=== PATIENT | female | born 1950 | race Hispanic/Latino ===

== ENCOUNTER 2017-06-26 06:11 | Day surgery (SDC) | payer OTHER ==
[~2017-06-26] VITALS: Ht 157.5 cm; Wt 83.6 kg
[2017-06-26 06:50] VITALS: BP 135/64
[2017-06-26] MEDS ORDERED: SODIUM CHLORIDE 0.9% 1000ML 1,000 ML IV ONE (06:54)
[2017-06-26] MEDS ORDERED: AMLO1TAB13 PO (07:19)
[2017-06-26] MEDS ORDERED: HYDR25TA PO (07:19)
[2017-06-26] MEDS ORDERED: BENZ200C53 PO (07:19)
[2017-06-26] MEDS ORDERED: FLUTICASONE NASAL (07:19)
[2017-06-26] MEDS ORDERED: ERGO500014 PO (07:19)
[2017-06-26] MEDS ORDERED: CYAN500L PO (07:19)
[2017-06-26] MEDS ORDERED: LEVO75TA10 PO (07:19)
[2017-06-26] MEDS ORDERED: NITR0.4T50 SL (07:19)
[2017-06-26] MEDS ORDERED: SPIR25TA4 PO (07:19)
[2017-06-26] MEDS ORDERED: PROPOFOL 10 MG/ML 20ML VIAL IV ONE (07:51)
[2017-06-26 08:04] VITALS: BP 99/48
[2017-08-31] MEDS ORDERED: PANT40TA25 PO (08:54)
== END 2017-06-26 08:35 ==
LOC: DAH 06:11
PROVIDERS: ATTEND Internal Medicine Gastroenterology
DX: K21.0 Gastro-esophageal reflux disease with esophagitis (principal); Z88.8 Allergy status to other drugs, medicaments and biological substances; Z79.899 Other long term (current) drug therapy; I10 Essential (primary) hypertension; I48.91 Unspecified atrial fibrillation; J45.909 Unspecified asthma, uncomplicated; M19.90 Unspecified osteoarthritis, unspecified site; Z90.710 Acquired absence of both cervix and uterus; Z98.890 Other specified postprocedural states; Z68.34 Body mass index [BMI] 34.0-34.9, adult
CPT/HCPCS: 43235; 93005; A4606; J2704; J7030

== ENCOUNTER 2017-09-01 07:42 | Day surgery (SDC) | payer OTHER ==
[~2017-09-01] VITALS: Ht 160 cm; Wt 82.2 kg
[~2017-09-01 07:42] MED LIST: AMLO1TAB13 PO; CYAN500L PO; ERGO500014 PO; FLUTICASONE NASAL; LEVO75TA10 PO; NITR0.4T50 SL; PANT40TA25 PO; SODIUM CHLORIDE 0.9% 1000ML 1,000 ML IV ONE; SPIR25TA6 PO
[2017-09-01 07:46] VITALS: BP 133/57
[2017-09-01] MEDS ORDERED: PROPOFOL 10 MG/ML 20ML VIAL IV ONE (09:38)
[2017-09-01] MEDS ORDERED: FENTANYL CITRATE PF 50 MCG/1 ML 2ML VIAL ONE (09:39)
[2017-09-01 09:56] VITALS: BP 112/58
== END 2017-09-01 10:40 ==
LOC: ENDO 07:42 → DAH 07:42 → ENDO 10:40
PROVIDERS: ATTEND Internal Medicine Gastroenterology
DX: Z12.11 Encounter for screening for malignant neoplasm of colon (principal); D12.4 Benign neoplasm of descending colon; K57.30 Diverticulosis of large intestine without perforation or abscess without bleeding; I10 Essential (primary) hypertension; K21.0 Gastro-esophageal reflux disease with esophagitis; I48.91 Unspecified atrial fibrillation; J45.909 Unspecified asthma, uncomplicated; M19.90 Unspecified osteoarthritis, unspecified site; Z87.442 Personal history of urinary calculi; Z88.6 Allergy status to analgesic agent; Z79.899 Other long term (current) drug therapy
CPT/HCPCS: 45380; 82948 ×2; 88305; A4606; J2704; J3010; J7030

== ENCOUNTER → 2017-10-16 | Outpatient (CLI) | payer OTHER ==
[~2017-10-16] MED LIST changes: -SODIUM CHLORIDE 0.9% 1000ML 1,000 ML IV ONE
== END | disposition home or self-care (01) ==
LOC: OIH 14:42
PROVIDERS: ATTEND Internal Medicine Cardiovascular Disease
DX: Z13.6 Encounter for screening for cardiovascular disorders (principal)
CPT/HCPCS: 75571

== ENCOUNTER → 2018-03-30 | Outpatient (CLI) | payer OTHER | END | disposition home or self-care (01) | LOC: RAH 11:14 | PROVIDERS: ATTEND Internal Medicine | DX: R10.84 Generalized abdominal pain (principal); R11.10 Vomiting, unspecified; R14.0 Abdominal distension (gaseous); K21.9 Gastro-esophageal reflux disease without esophagitis | CPT/HCPCS: 78264; A9541 ==

== ENCOUNTER → 2021-08-21 | Outpatient (CLI) | payer MEDICARE ==
[~2021-08-21] MED LIST changes: +AMLO-258 PO; -AMLO1TAB13 PO; +ASPI-1197 PO; +BENZ-39 PO; +BUDE0.5A8 IH; +HYDR25TA PO; +LEVO500T90 PO; +LEVO88TA7 PO; +LOSA50TA64 PO; -PANT40TA25 PO; +PRED20TA3 PO; +RANI150T7 PO
== END | disposition home or self-care (01) ==
LOC: RAH 16:36
PROVIDERS: ATTEND Physician Assistant
DX: M54.50 Low back pain, unspecified (principal); M41.25 Other idiopathic scoliosis, thoracolumbar region
CPT/HCPCS: 72081; 72114

== ENCOUNTER → 2023-06-19 | Outpatient (CLI) | payer MEDICARE ==
[~2023-06-19] MED LIST changes: +ASCO500C18 PO; -BENZ-39 PO; +ESOM40CA54 PO; +FURO20TA4 PO; -HYDR25TA PO; -LEVO500T90 PO; +MULT-1258 PO; -NITR0.4T50 SL; -PRED20TA3 PO
== END | disposition home or self-care (01) ==
LOC: RAH 12:43
PROVIDERS: ATTEND Physical Medicine & Rehabilitation
DX: M48.07 Spinal stenosis, lumbosacral region (principal); M54.51 Vertebrogenic low back pain; M99.05 Segmental and somatic dysfunction of pelvic region; M47.816 Spondylosis without myelopathy or radiculopathy, lumbar region
CPT/HCPCS: 72131

== ENCOUNTER → 2024-02-15 | Outpatient (CLI) | payer MEDICARE ==
[~2024-02-15] MED LIST changes: -ESOM40CA54 PO; +ESOM40CA66 PO
== END | disposition home or self-care (01) ==
LOC: RAH 14:09
PROVIDERS: ATTEND Physician Assistant
DX: R26.89 Other abnormalities of gait and mobility (principal)
CPT/HCPCS: 70551

== ENCOUNTER → 2025-04-04 | Outpatient (CLI) | payer MEDICARE ==
--- NOTE | 2025-04-04 13:49 | HMCIMG ---
EXAM: XR Right shoulder joint, 2 views: internal rotation and external rotation. CLINICAL HISTORY: PAIN IN THE RIGHT SHOULDER. COMPARISON: None provided. FINDINGS: BONES: Diffuse osteopenia noted. No acute fracture or focal osseous lesion. JOINTS: Mild degenerative changes at the acromioclavicular joint. No dislocation. The joint spaces are normal. SOFT TISSUES: The soft tissues are unremarkable. LUNGS: Increased linear interstitial and airspace opacities in the right lung, particularly in the lower and mid regions, are nonspecific and may reflect infection, edema, or chronic changes. MEDIASTINUM: Mediastinal widening. IMPRESSION: 1. Increased linear interstitial and airspace opacities in the right lung, nonspecific, possibly reflecting infection, edema, or chronic changes. 2. Mediastinal widening. 3. Mild degenerative changes at the acromioclavicular joint. 4. Diffuse osteopenia. 5. No acute osseous abnormality. /[place]
== END | disposition home or self-care (01) ==
LOC: RAH 08:56
PROVIDERS: ATTEND Physical Medicine & Rehabilitation
DX: M19.011 Primary osteoarthritis, right shoulder (principal); M25.511 Pain in right shoulder; M75.41 Impingement syndrome of right shoulder; M85.811 Other specified disorders of bone density and structure, right shoulder
CPT/HCPCS: 73030